=== PATIENT | female | born 1930 | race American Indian/Alaskan Native ===

== ENCOUNTER 2018-03-24 11:14 | Outpatient (CLI) | payer MEDICARE ==
--- NOTE | 2018-03-24 14:55 | Mammography Report ---
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 COMPARISON:07/02/16, 07/01/15 and 06/28/14 FINDINGS: The breasts are mostly fatty. The right breast is smaller than the left with stable retroareolar benign scar. Bilateral benign calcifications. An oval partially circumscribed left outer periareolar mass is unchanged compared to previous exams. No other mass, suspicious architectural distortion or suspicious calcifications. IMPRESSION: No mammographic evidence of malignancy. BI-RADS CATEGORY: 2 -- Benign RECOMMENDATION: Routine mammographic screening in one year. COMMENT: Patient follow-up letters are generated via our [email or web address] application.
== END 2018-03-24 11:15 | disposition home or self-care (01) ==
LOC: MAMMO 11:14
PROVIDERS: ATTEND Internal Medicine
DX: Z12.31 Encounter for screening mammogram for malignant neoplasm of breast (principal)
CPT/HCPCS: 77067

== ENCOUNTER 2019-04-06 10:03 | Outpatient (CLI) | payer MEDICARE ==
--- NOTE | 2019-04-09 10:39 | Mammography Report ---
DIGITAL SCREENING MAMMOGRAM WITH CAD, 04/06/2019 INDICATION: Routine screening mammography. Breast cancer survivor status post right partial mastectom y with radiation therapy. TECHNIQUE: Digital bilateral 2D mammography was obtained in the craniocaudal and mediolateral obliq ue projections. This examination was interpreted with the benefit of Computer-Aided Detection analysi s. COMPARISON: 03/24/2018 and 07/02/2016 FINDINGS: Breast Density: The breasts are almost entirely fatty. There is no evidence of new mass, suspicious calcifications or architectural distortion in either jeff ast. The right breast is smaller than the left. Bilateral benign calcifications, most of which are ar terial. A partially circumscribed left upper outer periareolar mass is unchanged compared to previous exams. IMPRESSION: No mammographic evidence of malignancy. Follow up recommendation: Routine yearly BI-RADS Category 2: Benign. A "normal" or negative report should not discourage follow up or biopsy of a clinically significant f inding. A written summary of these findings will be mailed to the patient. The patient will be entered into a mammography reporting system which will generate a reminder letter for the patient's next appointmen t at the appropriate interval. The [employer] recommends yearly mammograms starting at age 40 and continuing as l omkar as a woman is in good health. Breast MRI is recommended for women with an approximate 20-25% or greater lifetime risk of breast cancer, including women with a strong family history of breast or ova rajani cancer or who have been treated for Hodgkin's disease. Signer Name: Chu Orozco MD Signed: 04/09/2019 10:35 AM Workstation Name: [id number]
== END 2019-04-06 10:04 | disposition home or self-care (01) ==
LOC: MAMMO 10:03
PROVIDERS: ATTEND Internal Medicine
DX: Z12.31 Encounter for screening mammogram for malignant neoplasm of breast (principal)
CPT/HCPCS: 77067

== ENCOUNTER 2020-04-09 16:12 | Outpatient (CLI) | payer MEDICARE ==
--- NOTE | 2020-04-10 08:59 | Mammography Report ---
DIGITAL SCREENING MAMMOGRAM WITH CAD, 04/10/2020 INDICATION: Routine screening mammography. TECHNIQUE: Digital bilateral 2D mammography was obtained in the craniocaudal and mediolateral obliq ue projections. This examination was interpreted with the benefit of Computer-Aided Detection analysi s. COMPARISON: 04/06/2019, 03/24/2018 FINDINGS: Breast Density: The breasts are almost entirely fatty. There is no evidence of dominant mass, suspicious calcifications or architectural distortion in eithe r breast. There are stable bilateral benign calcifications. Right breast postoperative changes are st able. IMPRESSION: Follow up recommendation: Routine yearly BI-RADS Category 2: Benign. A "normal" or negative report should not discourage follow up or biopsy of a clinically significant f inding. A written summary of these findings will be mailed to the patient. The patient will be entered into a mammography reporting system which will generate a reminder letter for the patient's next appointmen t at the appropriate interval. The [employer] recommends yearly mammograms starting at age 40 and continuing as l omkar as a woman is in good health. Breast MRI is recommended for women with an approximate 20-25% or greater lifetime risk of breast cancer, including women with a strong family history of breast or ova rajani cancer or who have been treated for Hodgkin's disease. Signer Name: Jose hSook MD Signed: 04/10/2020 8:54 AM Workstation Name: [id number]
== END 2020-04-09 16:13 | disposition home or self-care (01) ==
LOC: SPVWC 16:12
PROVIDERS: ATTEND Internal Medicine
DX: Z12.31 Encounter for screening mammogram for malignant neoplasm of breast (principal)
CPT/HCPCS: 77067